=== PATIENT | female | born 1940 | race Caucasian/White ===

== ENCOUNTER → 2017-07-04 | Day surgery (SDC) | payer OTHER ==
[~2017-07-04] VITALS: Ht 149.9 cm; Wt 53.1 kg
--- NOTE | 2017-07-04 14:44 | Operative Report ---
Operative/Inv Procedure Report Surgery Date: 07/04/17 Name of Procedure: rectocele repair with Acell mesh Pre-Operative Diagnosis: rectocele grade 3 Post-Operative Diagnosis: same Estimated Blood Loss: less than 50ml Surgeon/Farm Planner: Yumiko Mark MD Anesthesia: laryngeal mask airway Implants: vaginal mesh Complications: none Condition: stable Operative Indication: rectocele with difficulty with BMs Operative/Procedure Note Note: This is a 76-year-old female with a history of rectocele. She has a history of chronic constipation and difficulty with bowel movements. She was very interested in surgical repair to have normal bowel movements. She was given the risks benefits and alternatives of rectocele repair with mesh. All questions were answered. This was done in the office and in the holding area. Patient was identified in the holding area and brought to the operating placed on the operating table in supine position. Timeout was performed. 1% lidocaine was infiltrated into the posterior vaginal wall. Careful dissection was made with the Metzenbaum scissors to create the posterior vaginal flaps. These were dissected free from the rectocele taking care not to injure the rectum. Periodic rectal exams were done. Once the rectocele was completely dissected free interrupted 2-0 Vicryl sutures were placed in the fascia defect with 2-0 Vicryl in a sequential manner proximally to distal. The Acell mesh was placed that had been soaking for 20 minutes at the start of the case. This was secured in place distally and proximally with 2-0 Vicryl suture. Internal 2-0 Vicryl sutures in the fascia were then tied down distal to proximal. This nicely reduced the rectocele. There was no longer defect when rectal was performed. The posterior vaginal wall was then closed with interrupted 2-0 Vicryl sutures. Sponge and needle count were correct the end of the case. Patient tolerated procedure well. Bladder was emptied. Findings: rectocele with no rectal injury Discharge Disposition: PACU
== END ==
LOC: STS 01:02
DX: N81.6 Rectocele (principal); K59.09 Other constipation; J44.9 Chronic obstructive pulmonary disease, unspecified; Z87.891 Personal history of nicotine dependence; I10 Essential (primary) hypertension; E03.9 Hypothyroidism, unspecified; K21.9 Gastro-esophageal reflux disease without esophagitis
CPT/HCPCS: C1781; J0131; J0690; J2250